=== PATIENT | female | born 1955 ===

== ENCOUNTER 2024-03-26 09:47 | Day surgery (SDC) | payer OTHER ==
[~2024-03-26] VITALS: Ht 167.6 cm; Wt 122.2 kg
[2024-03-26] MEDS ORDERED: LR 1,000 ML IV SCH (11:00)
[2024-03-26] MEDS ORDERED: Promethazine 25 MG TAB PO PRN (12:15)
[2024-03-26] MEDS ORDERED: oxyCODONE/Acetaminophen 5-325 MG TAB PO PRN (12:15)
[2024-03-26] MEDS ORDERED: HYDROcodone/Acetaminophen 7.5-325 MG TAB PO PRN (12:15)
[2024-03-26] MEDS ORDERED: Morphine 4 MG/ML VIAL IV PRN (12:15)
[2024-03-26] MEDS ORDERED: Scopolamine 1 MG Delivered 3-Day PATCH TD SCH (12:45)
[2024-03-26] MEDS ORDERED: Ondansetron 4 MG/2 ML VIAL IV PRN (12:45)
[2024-03-26] MEDS ORDERED: HYDROmorphone 1 MG/1 ML SYRINGE [PACU/SDC ONLY] IV PRN (12:45)
[2024-03-26] MEDS ORDERED: Morphine 2 MG/1 ML VIAL [PACU/SDC ONLY] IV PRN (12:45)
[2024-03-26] MEDS ORDERED: Ondansetron 4 MG/2 ML VIAL ONE (12:46)
[2024-03-26] MEDS ORDERED: Lidocaine PF 2% (20 MG/ML) 5 ML VIAL ONE (12:46)
[2024-03-26] MEDS ORDERED: dexAMETHasone 10 MG/ML VIAL ONE (12:46)
[2024-03-26] MEDS ORDERED: fentaNYL 50 MCG/ML 2 ML VIAL ONE (12:47)
[2024-03-26 14:20] VITALS: BP 182/78; PULSE 97; TEMP 98.1
[2024-03-26] MEDS ORDERED: FORTAMET500 M1 PO (14:28)
[2024-03-26] MEDS ORDERED: GLUCOTROL 5M5 MG/TAB PO (14:29)
[2024-03-26] MEDS ORDERED: VTAMINC250TA (14:29)
[2024-03-26] MEDS ORDERED: COZAAR100 MG PO (14:29)
[2024-03-26] MEDS ORDERED: BUMEX2 MG PO (14:30)
[2024-03-26 14:34] VITALS: BP 154/57; PULSE 88; TEMP 97.3
[2024-03-26 14:49] VITALS: BP 140/92; PULSE 82
[2024-03-26 15:04] VITALS: BP 168/76; PULSE 78
[2024-03-26 15:19] VITALS: BP 152/60; PULSE 76
--- NOTE | 2024-03-26 15:35 | NUR ---
1434 RETURNS TO ROOM 1 FROM OR PER CART WITH HOB ELEVATED 40 DEGREES. AWAKE, ALERT, RESP UNLABORED. VITAL SIGNS OBTAINED. MINDY WRAPPED DRESSING RIGHT WRIST CLEAN DRY AND INTACT. NEURO/CIRC CHECKS RIGHT UPPER EXTREMITY INTACT. BRISK CAP REFILL. MOVES ALL FINGERS WITHOUT DIFFICULTY. CALL LIGHT AT SIDE FRIEND IN ROOM 1445 RIGHT ARM/HAND ELEVATED. ICE PACK TO RIGHT WRIST. DENIES PAIN 1500 TOLERATES PO SODA WITHOUT NAUSEA 1505 DISCHARGE INSTRUCTIONS REVIEWED. PATIENT VERBALIZES UNDERSTANDING. COPY PROVIDED IN DISSCHARGE FOLDER 8993 SITE DC'D 1523 SITS ON EDGE OF CART. DRESSES WITH MINIMAL ASSIST. DENIES PAIN
== END 2024-03-26 15:37 | disposition home or self-care (01) ==
LOC: SDCO 09:47
DX: G56.01 Carpal tunnel syndrome, right upper limb (principal); I10 Essential (primary) hypertension; E11.9 Type 2 diabetes mellitus without complications; E66.9 Obesity, unspecified; Z79.84 Long term (current) use of oral hypoglycemic drugs
CPT/HCPCS: J0665; J0690; J1100; J2405; J2704; J3010; J7120